=== PATIENT | female | born 1960 | race Caucasian/White ===

== ENCOUNTER → 2020-11-20 | Outpatient (CLI) | payer BC | LOC: MC.RAD 14:23 | DX: Z12.31 Encounter for screening mammogram for malignant neoplasm of breast (principal) ==

== ENCOUNTER 2022-03-02 20:03 | Emergency (ER) | payer BC ==
[~2022-03-02] VITALS: Ht 160 cm; Wt 68.2 kg
[2022-03-02 20:08] VITALS: TEMP 97.6
[2022-03-02 20:22] LABS: BASO # 0.1 K/mm3 (0.0-0.2); BASO % 0.6 % (0.0-2.0); EOS % 0.1 % (0.0-4.0); GRAN # 11.4 K/mm3 (1.4-6.5); GRAN % 81.3 % (42.2-75.2); HEMATOCRIT 43.1 % (37.0-47.0); HEMOGLOBIN 14.1 g/dl (12.5-16.0); LYMPH # 1.9 K/mm3 (1.2-3.4); LYMPH % 13.8 % (20.0-51.0); MEAN CELL VOLUME 96 fl (80.0-100.0); MEAN CORPUSCULAR HEMOGLOBIN 31 pg (27-31); MEAN CORPUSCULAR HGB CONC 33 g/dl (33.0-37.0); MEAN PLATELET VOLUME 10.2 fl (7.4-10.4); MONO # 0.5 K/mm3 (0.1-0.6); MONO % 3.5 % (1.7-9.3); PLATELET COUNT 268 K/mm3 (130-400); REDCELL DISTRIBUTION WIDTH-CV 13.3 % (11.5-14.5)
[2022-03-02 20:27] LABS: PROTHROMBIN TIME 11.7 SECONDS (9.7-12.8)
[2022-03-02 20:30] LABS: PARTIAL THROMBOPLASTIN TIME 28.6 SECONDS (26.0-37.0)
[2022-03-02 20:36] LABS: ALANINE AMINOTRANSFERASE 25 U/L (0-55); ALBUMIN 4.2 gm/dL (3.4-4.8); ALKALINE PHOSPHATASE 58 U/L (40-150); ANION GAP 22 mmol/L (7-16); AST,SGOT 24 U/L (5-34); BILIRUBIN,TOTAL 0.3 mg/dL (0.2-1.2); BLOOD UREA NITROGEN 17 mg/dL (10-20); CALCIUM 8.1 mg/dL (8.4-10.2); CHLORIDE 105 mmol/L (98-107); CREATININE, serum 1.07 mg/dL (0.57-1.11); GLUCOSE 210 mg/dL (70-99); POTASSIUM 3.5 mmol/L (3.5-4.5); SODIUM 138 mmol/L (136-145); TOTAL PROTEIN 7.7 gm/dL (6.2-8.1)
[2022-03-02 20:38] LABS: ALCOHOL(ethanol),MEDICAL < 10 mg/dL (0-10); CARBON DIOXIDE 11 mmol/L (23-31)
[2022-03-02 20:47] LABS: COLLECTION METHOD IN
[2022-03-02 21:00] LABS: TRICYCLIC ANTIDEPRESS URINE NEGATIVE
[2022-03-02 21:06] LABS: MUCOUS Present (NOT PRESENT); PH 5 (5-8); SQUAMOUS EPITHELIAL 0-2 /hpf (0-10); URINE APPEARANCE Clear (CLEAR/HAZY); URINE BACTERIA None Seen /hpf (NONE SEEN); URINE BILIRUBIN Negative (NEGATIVE); URINE BLOOD 2+ (NEGATIVE); URINE COLOR Straw (YELLOW); URINE GLUCOSE 2+ (NEGATIVE); URINE KETONE Negative (NEGATIVE); URINE LEUKOCYTE ESTERASE Negative (NEGATIVE); URINE NITRATE Negative (NEGATIVE); URINE PROTEIN(semi-quant) 2+ (NEGATIVE); URINE UROBILINOGEN Negative (NEGATIVE)
[2022-03-02 21:24] VITALS: BP 127/83; PULSE 96
[2022-03-02] MEDS ORDERED: ZOLOFT 100MG100 MG PO (22:34)
[2022-03-02] MEDS ORDERED: VIVELLE-DO0.0375 MG/ TD (22:34)
[2022-03-02] MEDS ORDERED: DESYREL 100MG100 MG PO (22:34)
[2022-03-02] MEDS ORDERED: TOPROL XL 50MG50 MG PO (22:35)
[2022-03-02] MEDS ORDERED: ATARAX 25MG25 MG/TAB PO (22:36)
== END 2022-03-02 21:24 | disposition short-term general hospital (02) ==
LOC: COL.ER 20:03
PROVIDERS: Emergency Medicine
DX: I62.9 Nontraumatic intracranial hemorrhage, unspecified (principal); S00.502A Unspecified superficial injury of oral cavity, initial encounter; R56.9 Unspecified convulsions; Z20.822 Contact with and (suspected) exposure to COVID-19; X58.XXXA Exposure to other specified factors, initial encounter
CPT/HCPCS: J1953; J2405; J7030